=== PATIENT | male | born 1960 | race Caucasian/White ===

== ENCOUNTER 2020-02-06 00:36 | Outpatient (CLI) | payer OTHER, SELFPAY ==
[2020-02-06 19:29] LABS: SARS-CoV-2 RNA PCR Negative
== END 2020-02-06 00:37 | disposition home or self-care (01) ==
LOC: ANHCOVIDDT 00:38
PROVIDERS: PCP Internal Medicine; Visit Provider Surgery
DX: Z01.812 Encounter for preprocedural laboratory examination (principal); Z20.828 Contact with and (suspected) exposure to other viral communicable diseases
CPT/HCPCS: 87635; C9803; U0003

== ENCOUNTER 2020-02-06 07:14 | Outpatient (CLI) | payer OTHER, SELFPAY ==
--- NOTE | 2020-02-06 07:40 | ECG_ITS ---
Measurements Intervals [place] Rate: 75 P: 48 ID: [id number] QRS: 36 QRSD: 107 T: 12 QT: 385 QTc: 432 Interpretive Statements SINUS RHYTHM NORMAL ECG Electronically Signed On 02-06-2020 8:15:37 CDT by Yousif Mustafa D.O.
[2020-02-06 07:47] LABS: Anion Gap 8 mmol/L (8-16); Blood Urea Nitrogen 17 mg/dL (9-20); Carbon Dioxide 28 mmol/L (22-30); Chloride 100 mmol/L (98-107); Estimated Glomerular Filt Rate > 60; Glucose 276 mg/dL (75-110); Potassium 4.8 mmol/L (3.4-5.0); Sodium 136 mmol/L (137-145)
== END 2020-02-06 07:15 | disposition home or self-care (01) ==
PROVIDERS: PCP Internal Medicine; Visit Provider Anesthesiology
DX: E11.9 Type 2 diabetes mellitus without complications (principal); I10 Essential (primary) hypertension
CPT/HCPCS: 36415; 80048; 93005

== ENCOUNTER 2020-02-09 00:47 | Day surgery (SDC) | payer OTHER, SELFPAY ==
[2020-02-04 15:54] VITALS: BMI 32.5
[2020-02-09] MEDS: LACTATED RINGERS 1,000 ML 30 ML IV CONT ×2 (09:17→11:05)
--- NOTE | 2020-02-09 09:37 | P.PNAN_ITS ---
Anes - Initial Pre Proc Eval Procedure: Operation Date: 02/09/20 11:00 Proposed Procedures p Excision Left Posterior Neck Mass - Brandon Kathleen DO Date/Time: 02/09/20 09:37 Surgeon: Brandon Kathleen DO Pre Op Diagnosis: 3cm Posterior Neck Mass Patient Data Age: 59 Gender: M Height: 6 ft Weight: 108.86 kg Allergies Allergy/AdvReac Type Severity Reaction Status Date / Time No Known Allergies Allergy Unverified 02/09/20 09:10 Home Medications Medication Instructions Recorded Confirmed Type aspirin 81 mg tablet,delayed 81 mg PO DAILY 01/30/20 02/09/20 History release atorvastatin 40 mg tablet 40 mg PO DAILY 01/30/20 02/09/20 History dapagliflozin 10 mg tablet 10 mg PO DAILY 01/30/20 02/09/20 History icosapent ethyl 1 gram capsule 2 gm PO BID 01/30/20 02/09/20 History insulin detemir U-100 100 unit/mL 30 unit SUB-Q BID ml 01/30/20 02/09/20 History subcutaneous solution insulin lispro 100 unit/mL 46 unit SUB-Q TID ml 01/30/20 02/09/20 History subcutaneous half-unit pen losartan 100 mg tablet 100 mg PO DAILY 01/30/20 02/09/20 History metformin 500 mg tablet 1,000 mg PO BID 01/30/20 02/09/20 History metoprolol succinate 100 mg 100 mg PO DAILY 01/30/20 02/09/20 History tablet,extended release 24 hr multivitamin 1 tablet PO DAILY 01/30/20 02/09/20 History Patient hx anesthesia problems: none Family hx anesthesia problems: none [facility] Past Medical History Medical History Diabetes HTN (hypertension) Surgical History Surgical History H/O shoulder surgery left H/O shoulder surgery x2 right Hx laparoscopic cholecystectomy Family History Family History Father , surgery related No problems noted. Mother Colon cancer Social History Social History Smoking status: Never smoker Alcohol intake: never Substance use: unknown Gender identity (if verbalized by the patient): Male Spiritual care concerns: No Anes - Eval Final PreProcedure Day of Procedure 02/09/20 09:37 Patient weight: obese Heart: regular rate and rhythm Lungs: clear to auscultation Airway: Mallampati scale class II Neurological: alert and oriented Last oral intake: >/= 8 hours ASA classification: III Emergent: no Anesthetic plan: proceed Anesthesia type and monitoring: general GIVS and standard monitoring Informed Consent: The patient's anesthetic plan and its attendant risks and benefits were discussed with the patient/family/POA. Questions were solicited and answers provided to the satisfaction of the patient/family/POA.
[2020-02-09 09:40] LABS: Glucose Point of Care 264 (65-105)
[2020-02-09 09:41] VITALS: BP 150/89; PULSE 80; RESP 18; TEMP 36.8; O2SAT 100
--- NOTE | 2020-02-09 09:57 | WPDHPUPDATE1 ---
History and Physical Update Update Date/Time: 02/09/20 09:57 History and Physical has been reviewed, including an updated exam of the patient. There are NO changes in the patient's condition. Risks, benefits, and alternatives have been discussed and questions answered. Patient agrees to proceed with procedure.
[2020-02-09] MEDS: ceFAZolin 2 GM/D5W 50 ML 2 GM/50 ML BAG IVPB (10:20)
[2020-02-09] MEDS: LIDO 1%/EPINEPHRINE 1:100,000 20 ML VIAL INFILTRATE (10:32)
[2020-02-09] MEDS: BACITRACIN OINTMENT 15 GM TUBE 1 APPLIC TOPICAL (10:39)
--- NOTE | 2020-02-09 10:54 | P.OP_ITS ---
Procedure Note - Detailed Date of procedure: 02/09/20 Pre-op diagnosis: 3cm Posterior Neck Mass Post-op diagnosis: same Procedure performed: Excision 3cm left posterior neck mass Description of procedure: * Procedure as well as risks, benefits, and alternatives were discussed with the patient. Written consent was obtained and placed in chart prior to procedure. Patient was brought back to surgical suite. He was placed in right lateral decubitus position. Time-out was done to confirm patient and procedure. IV sedation was then administered by the Anesthesia Department. His left posterior neck region was prepped and draped in sterile fashion using chlorhexidine prep. 1% lidocaine with epinephrine was infiltrated locally around the mass. A 3 cm a elliptical incision was then made using a 15 blade scalpel. The mass was sharply excised from the subcu space using a 15 blade scalpel. The mass was completely excised intact. It was sent to the lab for pathology. The cavity was then inspected and hemostasis was achieved with electrocautery. No other abnormalities were noted. The skin edges were then reapproximated using 4-0 nylon simple interrupted sutures. Bacitracin ointment was applied followed by 4 x 4 gauze and Medipore tape. The patient was then awakened from anesthesia and transferred to recovery. Anesthesia: MAC and local (1% lidocaine with epi) Surgeon: Brandon Kathleen DO Estimated blood loss (mL): 5 Pathology: yes Complications: No immediate complications Condition: stable Disposition: same day Findings: * The left posterior neck mass was excised. This appeared likely to be a cyst. No other surrounding abnormalities were noted. The specimen was sent to the lab for pathology.
[2020-02-09 11:05] VITALS: BP 154/83; PULSE 98; RESP 20; O2SAT 97
[2020-02-09 11:22] LABS: Glucose Point of Care 248 (65-105)
[2020-02-09 11:35] VITALS: BP 137/75; PULSE 81; RESP 14
== END 2020-02-09 11:55 | disposition home or self-care (01) ==
PROVIDERS: PCP Internal Medicine; Visit Provider Surgery
PROC: (CPT 11423; principal; 2020-02-09 11:00)
DX: L72.3 Sebaceous cyst (principal); I10 Essential (primary) hypertension; E11.9 Type 2 diabetes mellitus without complications
CPT/HCPCS: 11423; 36415; 80048; 87635; 88304; 93005; A9270; J0690; J2250; J2704; J7120; U0003

== ENCOUNTER → 2020-10-22 00:30 | Outpatient (CLI) | payer OTHER, SELFPAY ==
[2020-10-22 19:36] LABS: SARS-CoV-2 RNA PCR Negative
== END ==
PROVIDERS: PCP Internal Medicine; Visit Provider Internal Medicine Gastroenterology
DX: Z01.812 Encounter for preprocedural laboratory examination (principal); Z20.822 Contact with and (suspected) exposure to COVID-19
CPT/HCPCS: C9803; U0003; U0005

== ENCOUNTER 2020-10-25 01:27 | Day surgery (SDC) | payer OTHER, SELFPAY ==
[2020-10-12 13:51] VITALS: BMI 33.7
[2020-10-25 10:01] LABS: Glucose Point of Care 316 (65-105)
[2020-10-25] MEDS: LACTATED RINGERS 1,000 ML 150 ML IV CONT (10:01)
[2020-10-25 10:02] VITALS: BP 144/87; PULSE 113; RESP 18; TEMP 36.5; O2SAT 97; BMI 31.4
--- NOTE | 2020-10-25 10:28 | WPDANESEPPF ---
Anes - Initial Pre Proc Eval Procedure: Operation Date: 10/25/20 10:45 Proposed Procedures p Screening Colonoscopy - Raúl Weber MD Date/Time: 10/25/20 10:28 Surgeon: Raúl Weber MD Pre Op Diagnosis: hx of colon polyps, family hx of colon CA Patient Data Age: 60 Gender: M Height: 6 ft Weight: 105 kg Last Vital Signs Temp 97.7 F 10/25/20 10:02 Pulse 113 H 10/25/20 10:02 Resp 18 10/25/20 10:02 BP 144/87 H 10/25/20 10:02 Pulse Ox 97 10/25/20 10:02 Allergies Allergy/AdvReac Type Severity Reaction Status Date / Time No Known Allergies Allergy Verified 10/25/20 09:48 Home Medications Medication Instructions Recorded Confirmed Type aspirin 81 mg tablet,delayed 81 mg PO DAILY 01/30/20 10/25/20 History release atorvastatin 40 mg tablet 40 mg PO DAILY 01/30/20 10/25/20 History dapagliflozin 10 mg tablet 10 mg PO DAILY 01/30/20 10/25/20 History icosapent ethyl 1 gram capsule 2 gm PO BID 01/30/20 10/25/20 History insulin detemir U-100 100 unit/mL 34 unit SUB-Q BID ml 01/30/20 10/25/20 History subcutaneous solution insulin lispro 100 unit/mL 46 unit SUB-Q TID ml 01/30/20 10/25/20 History subcutaneous half-unit pen losartan 100 mg tablet 100 mg PO DAILY 01/30/20 10/25/20 History metformin 500 mg tablet 1,000 mg PO BID 01/30/20 10/25/20 History metoprolol succinate 100 mg 100 mg PO DAILY 01/30/20 10/25/20 History tablet,extended release 24 hr multivitamin 1 tablet PO DAILY 01/30/20 10/25/20 History Laboratory Tests 10/25/20 09:52 POC Capillary Glucose 316 mg/dl H mg/dl (65-105) Patient hx anesthesia problems: none Family hx anesthesia problems: none PMFSH Past Medical History Medical History Diabetes HTN (hypertension) Surgical History Surgical History H/O shoulder surgery left H/O shoulder surgery x2 right History of excision of mass 02/09/20 posterior neck mass Hx laparoscopic cholecystectomy Family History Family History Father , surgery related No problems noted. Mother Colon cancer Social History Social History Smoking status: Never smoker Alcohol intake: never Substance use: unknown Living arrangements: with family Gender identity (if verbalized by the patient): Male Spiritual care concerns: No Anes - Eval Final PreProcedure Day of Procedure 10/25/20 10:28 Patient weight: obese Heart: regular rate and rhythm Lungs: clear to auscultation Airway: Mallampati scale class II Neurological: alert and oriented Last oral intake: >/= 8 hours ASA classification: III Emergent: no Anesthetic plan: proceed Anesthesia type and monitoring: general GIVS and standard monitoring Informed Consent: The patient's anesthetic plan and its attendant risks and benefits were discussed with the patient/family/POA. Questions were solicited and answers provided to the satisfaction of the patient/family/POA.
--- NOTE | 2020-10-25 10:45 | PM.HPGS ---
History of Present Illness History of Present Illness Consent: Risks, benefits, and alternatives have been discussed and questions answered. Patient agrees to proceed with procedure. Chief complaint: hx of colon polyps, family hx of colon CA Narrative: Denver Meehan is a 60 year old male with colon polyps 8 years ago. Review of Systems Constitutional: Constitutional: Denies headache(s) and Denies weakness Eyes: Eyes: Denies blurry vision ENT: Reports Normal hearing present, Denies headache(s) and Denies neck pain Cardiovascular: Cardiovascular: Denies chest pain and Denies dyspnea Respiratory: Respiratory: Denies dyspnea Gastrointestinal: Gastrointestinal: Reports no additional gastrointestinal complaints Genitourinary: Genitourinary: Denies dysuria Musculoskeletal: Musculoskeletal: Denies neck pain Integumentary/Breasts: Skin/Breast: Denies dry skin Neurologic: Reports Normal hearing present, Denies headache(s) and Denies weakness Psychiatric: Psychiatric: Denies anxiety Endocrine: Endocrine: Denies change in body appearance Hematologic/Lymphatic: Hematologic/Lymphatic: Denies easy bleeding Allergic/Immunologic: Allergic/Immunologic: Denies urticaria PMFSH Past Medical History Medical History (Updated 10/25/20 @ 10:45 by Raúl Weber MD) Colon polyp Diabetes HTN (hypertension) Surgical History Surgical History H/O shoulder surgery left H/O shoulder surgery x2 right History of excision of mass 02/09/20 posterior neck mass Hx laparoscopic cholecystectomy Family History Family History Father , surgery related No problems noted. Mother Colon cancer Social History Social History Smoking status: Never smoker Alcohol intake: never Substance use: unknown Living arrangements: with family Gender identity (if verbalized by the patient): Male Spiritual care concerns: No Meds Home Medications and Allergies Home Medications Medication Instructions Recorded Confirmed Type aspirin 81 mg tablet,delayed 81 mg PO DAILY 01/30/20 10/25/20 History release atorvastatin 40 mg tablet 40 mg PO DAILY 01/30/20 10/25/20 History dapagliflozin 10 mg tablet 10 mg PO DAILY 01/30/20 10/25/20 History icosapent ethyl 1 gram capsule 2 gm PO BID 01/30/20 10/25/20 History insulin detemir U-100 100 unit/mL 34 unit SUB-Q BID ml 01/30/20 10/25/20 History subcutaneous solution insulin lispro 100 unit/mL 46 unit SUB-Q TID ml 01/30/20 10/25/20 History subcutaneous half-unit pen losartan 100 mg tablet 100 mg PO DAILY 01/30/20 10/25/20 History metformin 500 mg tablet 1,000 mg PO BID 01/30/20 10/25/20 History metoprolol succinate 100 mg 100 mg PO DAILY 01/30/20 10/25/20 History tablet,extended release 24 hr multivitamin 1 tablet PO DAILY 01/30/20 10/25/20 History Allergies Allergy/AdvReac Type Severity Reaction Status Date / Time No Known Allergies Allergy Verified 10/25/20 09:48 Vital Signs Vital Signs - 24 hr 10/25/20 10:02 Temperature 97.7 F Pulse Rate 113 H Respiratory Rate 18 Blood Pressure 144/87 H Pulse Oximetry 97 Exam Const: General: comfortable and no acute distress HENMT: General nose exam: Normal nares present Eyes: General: appearance normal, both eyes and all related structures Neck: Neck: no JVD Resp: Auscultation: clear to auscultation bilaterally Cardio: Rate: regular rate Rhythm: regular rhythm GI: Inspection: non-distended GI Palp: Yes Soft to palpation Skin: General skin exam: normal color Neuro: General: gait normal Speech: normal speech Extrem: General: normal to inspection Psych: Mental Status: mental status grossly normal Assessment and Plan Assessment and plan (1) Colon polyp: Code(s): K63.5 - Polyp of colo
[2020-10-25 11:14] VITALS: BP 104/70; PULSE 100; RESP 18; O2SAT 95
[2020-10-25 11:24] VITALS: BP 121/79; PULSE 104; RESP 20; O2SAT 92
[2020-10-25 11:34] VITALS: BP 126/75; PULSE 106; RESP 20; O2SAT 96
== END 2020-10-25 11:48 | disposition home or self-care (01) ==
PROVIDERS: PCP Internal Medicine; Visit Provider Internal Medicine Gastroenterology
PROC: 0DJD8ZZ Inspection of Lower Intestinal Tract, Via Natural or Artificial Opening Endoscopic (ICD-10-PCS; CPT 45378; principal; 2020-10-25 10:45)
DX: Z12.11 Encounter for screening for malignant neoplasm of colon (principal); D12.6 Benign neoplasm of colon, unspecified; D12.5 Benign neoplasm of sigmoid colon; K57.30 Diverticulosis of large intestine without perforation or abscess without bleeding; E11.9 Type 2 diabetes mellitus without complications; I10 Essential (primary) hypertension; Z86.010 Personal history of colon polyps; Z80.0 Family history of malignant neoplasm of digestive organs; Z90.49 Acquired absence of other specified parts of digestive tract
CPT/HCPCS: 45385; 82948; 88305; C9803; J2704; J7120; U0003; U0005